=== PATIENT | female | born 1935 | race Caucasian/White ===

== ENCOUNTER 2017-10-02 09:53 | Emergency (ER) | payer OTHER ==
[~2017-10-02] VITALS: Ht 156.2 cm; Wt 56.0 kg
[2017-10-02 09:56] VITALS: BP 91/55; PULSE 103; RESP 18; TEMP 98.6; O2SAT 97
--- NOTE | 2017-10-02 10:23 | PD ---
Physical Exam Time Seen by Provider: 10:21 Narrative 81yo F presents with her neighbor. He tried calling her morning 4 times, and when she finally answered she told him she was sick. Hx of IBS and had a bout on Tuesday with a lot of diarrhea. The patient herself has no complaints, but the neighbor states she's been shaky and drinking a lot of water and thinks she may be dehydrated. Denies fever, vomiting. BSG in triage 135. Patient seen in triage. Awaiting bed placement. See next providers note for final patient disposition. Data Data Last Documented VS Vital Signs Date Time Temp Pulse Resp B/P (MAP) Pulse Ox O2 Delivery O2 Flow Rate FiO2 10/02/17 09:56 98.6 103 18 91/55 (67) 97 MDM Supervised Visit with REYNA: Ester Viveros Oct 02, 2017 10:23
[2017-10-02] MEDS ORDERED: LINA290C PO (11:23)
[2017-10-02] MEDS ORDERED: ASPI-183 PO (11:26)
[2017-10-02] MEDS ORDERED: ATOR20TA15 PO (11:26)
[2017-10-02] MEDS ORDERED: SODIUM CHLORIDE 0.9% FLUSH 10 ML FLUSH IV FLUSH PRN (11:45)
[2017-10-02 11:55] LABS: AUTOMATED NEUTROPHIL # 12.3 TH/MM3 (1.8-7.7); BASOPHIL % 0.2 % (0.0-2.0); HEMATOCRIT 42.3 % (35.0-46.0); HEMOGLOBIN 14.5 GM/DL (11.6-15.3); LYMPH % 1.3 % (9.0-44.0); LYMPHOCYTE # 0.2 TH/MM3 (1.0-4.8); MEAN CELL VOLUME 91.6 FL (80.0-100.0); MEAN CORPUSCULAR HEMOGLOBIN 31.3 PG (27.0-34.0); MEAN CORPUSCULAR HGB CONC 34.2 % (32.0-36.0); MEAN PLATELET VOLUME 7.1 FL (7.0-11.0); MONO % 1.7 % (0.0-8.0); MONOCYTE # 0.2 TH/MM3 (0-0.9); NEUT % 96.8 % (16.0-70.0); PLATELET COUNT 202 TH/MM3 (150-450); RED BLOOD COUNT 4.61 MIL/MM3 (4.00-5.30); RED CELL DISTRIBUTION WIDTH 13.3 % (11.6-17.2); WHITE BLOOD COUNT 12.7 TH/MM3 (4.0-11.0)
[2017-10-02 12:15] LABS: ALBUMIN 3.9 GM/DL (3.4-5.0); ALT (GPT) 30 U/L (10-53); AST (GOT) 30 U/L (15-37); BLOOD UREA NITROGEN 15 MG/DL (7-18); CALCIUM 8.7 MG/DL (8.5-10.1); CHLORIDE 105 MEQ/L (98-107); CREATININE 0.82 MG/DL (0.50-1.00); GLOMERULAR FILTRATION RATE 67 ML/MIN (>89); GLUCOSE,RANDOM 139 MG/DL (74-106); LIPASE 144 U/L (73-393); SODIUM (NA) 138 MEQ/L (136-145)
[2017-10-02 12:17] LABS: ALKALINE PHOSPHATASE 69 U/L (45-117); TOTAL BILIRUBIN ADULT 0.6 MG/DL (0.2-1.0); TOTAL PROTEIN 7.6 GM/DL (6.4-8.2)
[2017-10-02 12:35] VITALS: BP 102/55; PULSE 86; RESP 14; O2SAT 95
[2017-10-02] MEDS ORDERED: SODIUM CHLOR 0.9% 1000 ML INJ 1,000 ML IV ONE (12:45)
[2017-10-02 12:51] VITALS: RESP 18; O2SAT 97
[2017-10-02] MEDS ORDERED: IOHEXOL 350 MG/ML 10 ML VIAL (for RAD DIAG) IVCONTRAST ONE (13:45)
--- NOTE | 2017-10-02 14:02 | RADRPT ---
EXAM DATE/TIME: 10/02/2017 13:23 [facility] COMPARISON: No previous studies available for comparison. INDICATIONS : Epigastric abdominal pain today. IV CONTRAST: 75 cc Omnipaque 350 (iohexol) IV ORAL CONTRAST: No oral contrast ingested. RADIATION DOSE: 20.23 CTDIvol (mGy) MEDICAL HISTORY : Thyroid disease. SURGICAL HISTORY : Tubal ligation. ENCOUNTER: Initial ACUITY: 3 days PAIN SCALE: 5/10 LOCATION: epigastric abdominal TECHNIQUE: Volumetric scanning of the abdomen and pelvis was performed. Using automated exposure control and ad justment of the mA and/or kV according to patient size, radiation dose was kept as low as reasonably achievable to obtain optimal diagnostic quality images. DICOM format image data is available electro nically for review and comparison. FINDINGS: LOWER LUNGS: There is mild scarring and/or atelectasis in both lung bases. LIVER: Homogeneous density without lesion. There is no dilation of the biliary tree. No calcified gallston es. SPLEEN: Normal size without lesion. PANCREAS: Within normal limits. KIDNEYS: Normal in size and shape. There is no mass, stone or hydronephrosis. ADRENAL GLANDS: Within normal limits. VASCULAR: There is no aortic aneurysm. BOWEL/MESENTERY: There are multiple loops of nondilated air-containing small bowel with multiple small air-fluid level s. There are scattered diverticuli greatest in the sigmoid colon. There is a normal appendix. There i s no free air or fluid. No oral contrast was given limiting the sensitivity the exam. ABDOMINAL WALL: Within normal limits. RETROPERITONEUM: There is no lymphadenopathy. BLADDER: No wall thickening or mass. REPRODUCTIVE: Within normal limits. INGUINAL: There is no lymphadenopathy or hernia. MUSCULOSKELETAL: Within normal limits for patient age. CONCLUSION: 1. Mildly nonspecific, nonobstructive bowel gas pattern which may represent a mild ileus and/or gastr oenteritis. 2. Mild diverticulosis with no definite focal inflammatory change. There is normal appendix. 3. The gallbladder is unremarkable in appearance. Teddy Stewart MD on October 02, 2017 at 13:57 Board Certified Radiologist. This report was verified electronically.
[2017-10-02 15:24] LABS: BILIRUBIN, URINE NEG (NEG); BLOOD, URINE NEG (NEG); GLUCOSE,URINE NEG (NEG); KETONE, URINE NEG (NEG); NITRITE,URINE NEG (NEG); SQUAMOUS EPITHELIAL CELL URINE <1 /hpf (0-5); URINE COLOR LIGHT-YELLOW (YELLW/STRAW); URINE LEUKOCYTE ESTERASE SMALL (NEG)
[2017-10-02 15:29] VITALS: BP 112/56; PULSE 88; RESP 18; O2SAT 94; O2SAT 95
--- NOTE | 2017-10-02 15:40 | PD ---
HPI Chief Complaint: Medical Clearance Time Seen by Provider: 11:24 Travel History International Travel<30 days: No Contact w/Intl Traveler<30days: No Traveled to known affect area: No History of Present Illness HPI 81-year-old female arrives with a history of tremor and polyuria. Evidently she had episodes of diarrhea 2 days ago which was profuse. She is recently started medication, Linzess. The patient also complains of generalized fatigue and excessive sleepiness. Severity moderate. no modifying factor. PFSH Past Medical History High Cholesterol: Yes Gastrointestinal Disorders: Yes (ibs) Thyroid Disease: Yes Tubal Ligation: Yes Past Surgical History Other Surgery: Yes (l elbow, l ankle) Social History Alcohol Use: No Tobacco Use: No Substance Use: No Allergies-Medications (Allergen,Severity, Reaction): Coded Allergies: No Known Allergies (Unverified , 10/02/17) Reported Meds & Prescriptions Reported Meds & Active Scripts Active Reported Atorvastatin (Atorvastatin Calcium) 20 Mg Tab 20 Mg PO HS Aspirin 325 Mg Tab 162 Mg PO DAILY Linzess (Linaclotide) 290 Mcg Cap 290 Mcg PO DAILY Review of Systems Except as stated in HPI: all other systems reviewed are Neg Physical Exam Narrative GENERAL: Well-nourished well-developed 9-year-old female no acute distress SKIN: Warm and dry. HEAD: Atraumatic. Normocephalic. EYES: Pupils equal and round. No scleral icterus. No injection or drainage. ENT: No nasal bleeding or discharge. Mucous membranes pink and moist. NECK: Trachea midline. No JVD. CARDIOVASCULAR: Regular rate and rhythm. RESPIRATORY: No accessory muscle use. Clear to auscultation. Breath sounds equal bilaterally. GASTROINTESTINAL: Abdomen soft, non-tender, nondistended. Hepatic and splenic margins not palpable. MUSCULOSKELETAL: Extremities without clubbing, cyanosis, or edema. No obvious deformities. NEUROLOGICAL: Awake and alert. No obvious cranial nerve deficits. Motor grossly within normal limits. Five out of 5 muscle strength in the arms and legs. Normal speech. PSYCHIATRIC: Appropriate mood and affect; insight and judgment normal. Data Data Last Documented VS Vital Signs Date Time Temp Pulse Resp B/P (MAP) Pulse Ox O2 Delivery O2 Flow Rate FiO2 10/02/17 15:29 88 18 112/56 (74) 95 Room Air 10/02/17 09:56 98.6 Orders Orders Electrocardiogram (10/02/17 10:25) Complete Blood Count With Diff (10/02/17 11:31) Comprehensive Metabolic Panel (10/02/17 11:31) Lipase (10/02/17 11:31) Urinalysis - C+S If Indicated (10/02/17 11:31) Iv Access Insert/Monitor (10/02/17 11:31) Ecg Monitoring (10/02/17 11:31) Oximetry (10/02/17 11:31) Sodium Chloride 0.9% Flush (Ns Flush) (10/02/17 11:45) Ct Abd/Pel W Iv Contrast(Rout) (10/02/17 12:34) Sodium Chlor 0.9% 1000 Ml Inj (Ns 1000 M (10/02/17 12:45) Iohexol 350 Inj (Omnipaque 350 Inj) (10/02/17 13:45) Ed Discharge Order (10/02/17 15:36) Labs Laboratory Tests Test 10/02/17 11:40 10/02/17 14:40 White Blood Count 12.7 TH/MM3 Red Blood Count 4.61 MIL/MM3 Hemoglobin 14.5 GM/DL Hematocrit 42.3 % Mean Corpuscular Volume 91.6 FL Mean Corpuscular Hemoglobin 31.3 PG Mean Corpuscular Hemoglobin Concent 34.2 % Red Cell Distribution Width 13.3 % Platelet Count 202 TH/MM3 Mean Platelet Volume 7.1 FL Neutrophils (%) (Auto) 96.8 % Lymphocytes (%) (Auto) 1.3 % Monocytes (%) (Auto) 1.7 % Eosinophils (%) (Auto) 0.0 % Basophils (%) (Auto) 0.2 % Neutrophils # (Auto) 12.3 TH/MM3 Lymphocytes # (Auto) 0.2 TH/MM3 Monocytes # (Auto) 0.2 TH/MM3 Eosinophils # (Auto) 0.0 TH/MM3 Basophils # (Auto) 0.0 TH/MM3 CBC Comment DIFF FINAL Differential Comment Blood Urea Nitrogen 15 MG/DL Creatinine 0.82 MG/DL Random Glucose 139 MG/DL Total Protein 7.6 GM/DL Albumin 3.9 GM/DL Calcium Level 8.7 MG/DL Alkaline Phosphatase 69 U/L Aspartate Amino Transf (AST/SGOT) 30 U/L Alanine Aminotransferase (ALT/SGPT) 30 U/L Total Bilirubin 0.6 MG/DL Sodium Level 138 MEQ/L Potassium Level 4.0 MEQ/L Chloride Level 105 MEQ/L Carbon Dioxide Level 25.0 MEQ/L Anion Gap 8 MEQ/L Estimat Glomerular Filtration Rate 67 ML/MIN Lipase 144 U/L Urine Color LIGHT-YELLOW Urine Turbidity CLEAR Urine pH 6.0 Urine Specific [place] 1.021 Urine Protein NEG mg/dL Urine Glucose (UA) NEG mg/dL Urine Ketones NEG mg/dL Urine Occult Blood NEG Urine Nitrite NEG Urine Bilirubin NEG Urine Urobilinogen LESS THAN 2.0 MG/DL Urine Leukocyte Esterase SMALL Urine RBC LESS THAN 1 /hpf Urine WBC 2 /hpf Urine Squamous Epithelial Cells <1 /hpf Microscopic Urinalysis Comment CULT NOT INDICATED MDM Medical Decision Making Medical Screen Exam Complete: Yes Emergency Medical Condition: Yes Medical Record Reviewed: Yes Differential Diagnosis Renal failure, anemia, medication side effect Narrative Course CBC & BMP Diagram 10/02/17 11:40 Total Protein 7.6, Albumin 3.9, Calcium Level 8.7, Alkaline Phosphatase 69, Aspartate Amino Transf (AST/SGOT) 30, Alanine Aminotransferase (ALT/SGPT) 30, Total Bilirubin 0.6 Last Impressions Abdomen/Pelvis CT 10/02/17 1234 Signed Impressions: Service Date/Time: Monday, October 02, 2017 13:23 - CONCLUSION: 1. Mildly nonspecific, nonobstructive bowel gas pattern which may represent a mild ileus and/or gastroenteritis. 2. Mild diverticulosis with no definite focal inflammatory change. There is normal appendix. 3. The gallbladder is unremarkable in appearance. Teddy Stewart MD The patient is resting comfortably and feels better, is alert and in no distress. The patients results and examination findings were discussed. The repeat examination is unremarkable and benign. The history, exam, diagnostic testing, and current condition do not suggest any significant pathology to warrant further testing, continued ED treatment, admission, or surgical evaluation at this point. The vital signs have been stable. The patient does not have uncontrollable pain, intractable vomiting, or other significant symptoms. The patient's condition is stable and appropriate for discharge. The patient will pursue further outpatient evaluation with a primary care physician or other designated or consulting physician as indicated in the discharge instructions. The patient expressed understanding and was agreeable with this plan. Diagnosis Primary Impression: Medication side effect Qualified Codes: T88.7XXA - Unspecified adverse effect of drug or medicament, initial encounter Additional Impressions: Diarrhea Qualified Codes: R19.7 - Diarrhea, unspecified Weakness Polydipsia Med/Other Pt SpecificInfo: No Change to Meds Disposition: 01 DISCHARGE HOME Condition: Stable Garrett Paz MD Oct 02, 2017 15:40
--- NOTE | 2017-10-03 15:40 | EKG ---
Date Performed: 10/02/2017 Time Performed: 10:30:00 PTAGE: 81 years EKG: Sinus rhythm NONSPECIFIC ST & T-WAVE ABNORMALITY BORDERLINE ECG NO PREVIOUS TRACING DOCTOR: James Lares Interpretating Date/Time 10/03/2017 15:38:27
== END 2017-10-02 16:22 | disposition home or self-care (01) ==
LOC: NEPC 09:53
DX: T88.7XXA Unspecified adverse effect of drug or medicament, initial encounter (principal); R53.1 Weakness; R63.1 Polydipsia; K57.90 Diverticulosis of intestine, part unspecified, without perforation or abscess without bleeding; R94.31 Abnormal electrocardiogram [ECG] [EKG]; E78.00 Pure hypercholesterolemia, unspecified; E07.9 Disorder of thyroid, unspecified; Z87.19 Personal history of other diseases of the digestive system; Z79.82 Long term (current) use of aspirin
CPT/HCPCS: 74177; 80053; 81001; 83690; 85025; 93005; 96360; 96361; 99285; J7030; Q9967